=== PATIENT | female | born 1985 | race African-American/Black ===

== ENCOUNTER 2023-04-21 03:22 | Emergency (ER) | payer MEDICAID ==
[~2023-04-21] VITALS: Ht 182.9 cm; Wt 80.0 kg
[2023-04-21 03:42] VITALS: BP 135/80; PULSE 84; RESP 16; TEMP 97.7; O2SAT 100
== END 2023-04-21 05:30 | disposition left against medical advice (07) ==
LOC: ER 03:48
DX: R42 Dizziness and giddiness (principal); Z53.21 Procedure and treatment not carried out due to patient leaving prior to being seen by health care provider
CPT/HCPCS: 81025; 99281

== ENCOUNTER 2023-08-19 05:05 | Emergency (ER) | payer MEDICAID ==
[~2023-08-19] VITALS: Ht 185.4 cm; Wt 75.0 kg
[2023-08-19 05:07] VITALS: BP 140/82; PULSE 90; RESP 16; TEMP 98.3; O2SAT 98
[2023-08-19] MEDS: ACETAMINOPHEN 325MG TABLET PO ONE (07:18)
== END 2023-08-19 09:19 | disposition left against medical advice (07) ==
LOC: ER 05:16
DX: M79.672 Pain in left foot (principal); F15.10 Other stimulant abuse, uncomplicated
CPT/HCPCS: 73610; 73630; 93970; 99284

== ENCOUNTER 2024-06-20 01:51 | Emergency (ER) | payer MEDICAID | END 2024-06-20 02:54 | disposition left against medical advice (07) | LOC: ER 01:51 | DX: M54.50 Low back pain, unspecified (principal); Z53.21 Procedure and treatment not carried out due to patient leaving prior to being seen by health care provider ==

== ENCOUNTER 2024-07-06 12:43 | Emergency (ER) | payer MEDICAID, OTHER ==
[~2024-07-06] VITALS: Ht 188 cm; Wt 95.0 kg
[2024-07-06 12:48] VITALS: O2SAT 99
[2024-07-06 12:55] VITALS: BP 141/78; PULSE 79; RESP 18; TEMP 36.8; O2SAT 100
== END 2024-07-06 18:22 | disposition home or self-care (01) ==
LOC: ER 12:54
DX: Z00.8 Encounter for other general examination (principal); Z53.21 Procedure and treatment not carried out due to patient leaving prior to being seen by health care provider